=== PATIENT | female | born 1970 | race Caucasian/White ===

== ENCOUNTER 2016-04-20 19:18 | Emergency (ER) | payer OTHER ==
--- NOTE | 2016-04-20 19:40 | ERPHSYRPT ---
- History of Present Illness Time Seen by Provider: 04/20/16 19:27 Source: patient Exam Limitations: no limitations Physician History: FOR THE PAST MONTH PT HAS HAD A PRODUCTIVE COUGH, FRONTAL HEADACHE AND DIAPHORESIS AT NIGHT; FOR YEARS SHE HAS HAD ABDOMINAL PAIN FROM IBS. Allergies/Adverse Reactions: milnacipran HCl [From Savella] Allergy (Severe, Verified 04/20/16 19:55) Tightness of Throat pregabalin [From Lyrica] Allergy (Severe, Verified 04/20/16 19:55) Tightness of Throat Sulfa (Sulfonamide Antibiotics) [Sulfa(Sulfonamide Antibiotics)] Allergy ( Intermediate, Verified 04/20/16 19:55) Hives gabapentin [From Neurontin] Allergy (Mild, Verified 04/20/16 19:55) Swelling topiramate [From Topamax] Allergy (Mild, Verified 04/20/16 19:55) Swelling acetaminophen [From [place]] Allergy (Verified 04/20/16 19:55) hydrocodone [From [place]] Allergy (Verified 04/20/16 19:55) Home Medications: Alprazolam 1 mg [Xanax 1 mg] 2 mg PO QIDPRN PRN 08/18/13 [History] Promethazine HCl 25 mg [Phenergan 25 mg] 25 mg PO Q6HPRN 08/18/13 [History ] Tizanidine HCl [Zanaflex] 6 mg PO Q4HPRN PRN 03/13/14 [History] Albuterol Sulfate [Proair Hfa] 2 puff IH UD 06/07/14 [History] Quetiapine Fumarate [Seroquel] 400 mg PO HS 06/07/14 [History] Ranitidine HCl [Zantac] 300 mg PO DAILY 06/07/14 [History] Albuterol Sulfate [Proair Hfa] 0 gm IH DAILY PRN PRN 07/11/15 [History] Escitalopram Oxalate 10 mg [Lexapro 10 MG] 20 mg PO DAILY 04/20/16 [History] Loperamide HCl [Imodium A-D] 2 mg PO DAILY 04/20/16 [History] Ropinirole HCl 0.5 mg [Requip 0.5 MG] 0.25 mg PO DAILY 04/20/16 [History] Tramadol HCl 50 mg [Ultram 50 mg] 50 mg PO TID 04/20/16 [History] Hx Tetanus, Diphtheria Vaccination/Date Given: Yes Hx Influenza Vaccination/Date Given: No Hx Pneumococcal Vaccination/Date Given: No - Review of Systems Constitutional: Night Sweats Respiratory: Cough Abdominal/Gastrointestinal: Abdominal Pain (CHRONIC) Neurological: Headache All Other Systems: Reviewed and Negative - Past Medical History Pertinent Past Medical History: Yes Neurological History: Migraines ENT History: No Pertinent History Cardiac History: Hypertension Respiratory History: Asthma, Sleep Apnea Endocrine Medical History: No Pertinent History Musculoskeletal History: Arthritis, Degenerative Disk Disease, Fibromyalgia, Fractures, Rheumatoid Arthritis GI Medical History: Colitis, GERD, Gallbladder Disease, Hernia, Irritable Bowel , Other History: No Pertinent History Psycho-Social History: Anxiety, Depression, Panic Disorder, Other Female Reproductive Disorders: Fibroids Other Medical History: inflammation in stomach lining,- fibrous breastsBORDERLINE PERSONALITYasthma/allergy inducedovarian cystsbulging disc back - Past Surgical History Past Surgical History: Yes Neuro Surgical History: No Pertinent History Cardiac: No Pertinent History Respiratory: No Pertinent History Gastrointestinal: Cholecystectomy Genitourinary: No Pertinent History Musculoskeletal: No Pertinent History Female Surgical History: Section, Tubal Ligation Other Surgical History: tonsils 1991 - Social History Smoking Status: Current every day smoker How long have you smoked: 20 Exposure to second hand smoke: Yes Alcohol Use: None Drug Use: none Patient Lives Alone: No Significant Family History: hypertension - Female History Hx Now: No - Nursing Vital Signs Nursing Vital Signs: Initial Vital Signs Temperature 97.9 F Temperature Source Oral Pulse Rate 98 Respiratory Rate 14 Blood Pressure [] 160/90 Pain Intensity 7 - Physical Exam General Appearance: no apparent distress Eye Exam: PERRL/EOMI Ears, Nose, Throat Exam: TMs normal, moist mucous membranes, pharyngeal erythema Neck Exam: normal inspection, non-tender Respiratory Exam: normal breath sounds Cardiovascular Exam: normal heart sounds Gastrointestinal/Abdomen Exam: soft, normal bowel sounds Back Exam: normal range of motion Extremity Exam: normal inspection, No pedal edema Neurologic Exam: alert, cooperative Skin Exam: warm, dry - Course Nursing assessment & vital signs reviewed: Yes - Radiology Exams Chest X-ray Interpretation: Discussed w/ radiologist (COMPARED TO 10/8/16: STABLE NORMAL CXR.) Ordered Tests: Active Orders 24 hr Category Date Time Status CHEST 2 VIEWS (PA AND LAT) Stat Exams 04/20/16 20:06 Taken CULTURE, THROAT Stat Lab 04/20/16 20:05 Received STREP SCREEN-BETA A Stat Lab 04/20/16 20:05 Completed Medication Summary Generic Name Dose Route Start Last Admin Trade Name Freq PRN Reason Stop Dose Admin Ceftriaxone Sodium/Dextrose 50 mls @ 100 mls/hr 04/20/16 21:39 Rocephin 1 Gm-D5w 50 Ml Bag IV 04/20/16 22:08 STAT ONE Discontinued Medications Generic Name Dose Route Start Last Admin Trade Name Freq PRN Reason Stop Dose Admin Tuberculin PPD 5 unit 04/20/16 21:39 Aplisol ID 04/20/16 21:40 STAT ONE Lab/Rad Data: Laboratory Results 04/20/16 Range/Units 20:05 Streptococcus Screen NEGATIVE (Negative) - Departure Time of Disposition: 21:44 Departure Disposition: Home Clinical Impression: PHARYNGITIS Condition: Fair Critical Care Time: No Referrals: DEVON HULL [Primary Care Provider] - Instructions: Pharyngitis/Tonsillopharyngitis -- Adult Additional Instructions: FOLLOW UP WITH PRIVATE DOCTOR TOMORROW AND BETWEEN 48 HOURS TO 72 HOURS FROM 10: 00 PM TONIGHT TO HAVE TB TEST ON LEFT FOREARM READ. Prescriptions: Cefdinir [Omnicef 300 mg] 300 mg PO BID #20 capsule
[2016-04-20] MEDS ORDERED: Aplisol ID ONE ×2 (21:39→21:59)
[2016-04-20] MEDS ORDERED: ROCEPHIN 1 Gm-D5w 50 ml Bag** 50 ML IV ONE (22:23)
[2016-04-20] MEDS: ROCEPHIN 1 Gm-D5w 50 ml Bag** 50 ML IV ONE ×2 (22:27→22:30)
[2016-04-20] MEDS ORDERED: Rocephin 1000 MG INJ IM ONE (22:30)
[2016-04-20] MEDS ORDERED: XYLOCAINE 1% HCL 20 ML MDV ONE (22:48)
[2016-04-20] MEDS ORDERED: Rocephin 1000 MG INJ ONE (22:48)
[2016-04-20 22:57] VITALS: BP 142/91; PULSE 104; O2SAT 97
--- NOTE | 2016-04-21 08:39 | XRAY ---
Indication: Fever, cough, and night sweats. TB exposure 6 months ago. Comparison: November 16, 2015. PA/lateral chest again demonstrates normal heart, lungs, and bony thorax.
== END 2016-04-20 23:12 | disposition home or self-care (01) ==
LOC: ED 19:18
DX: J02.9 Acute pharyngitis, unspecified (principal); R05 Cough; R51 Headache; R61 Generalized hyperhidrosis; Z79.899 Other long term (current) drug therapy; R10.9 Unspecified abdominal pain; I10 Essential (primary) hypertension
CPT/HCPCS: 71020; 87070; 87430; 96372; 99284; J0696

== ENCOUNTER 2016-09-04 17:27 | Emergency (ER) | payer OTHER ==
[2016-09-04] MEDS ORDERED: MORPHINE SULFATE 4 MG INJ IV ONE (18:06)
[2016-09-04] MEDS ORDERED: Zofran 4 MG/2 ML VIAL IV ONE (18:06)
--- NOTE | 2016-09-04 18:07 | ERPHSYRPT ---
- History of Present Illness Time Seen by Provider: 09/04/16 18:02 Source: patient Exam Limitations: no limitations Patient Subjective Stated Complaint: pt states she tripped and missed the last step at her home. pt c/o pain to left shoulder and side. denies any loss of consciousness. Triage Nursing Assessment: pt pink, warm, dry. c-collar apllied upon arrival to ER. pt ambulated into ER without help. no brusing or deformities noted. abrasion noted to right foot and right knee. pupils perrl. Physician History: 46 y/o female comes to the ER after falling from 3 flights of steps and landing on the left side of her shoulder, chest and head. No LOC and the patient is not on any blood thinners. Pt describes the pain as sharp, constant, 8/10, worst with movement and not relieved by norco. Pt arrives with a small contusion on the left side of her head, is in a cervical collar and has decrease range of motion of her left side. Method of Injury: fall Occurred: just prior to arrival Where Injury Occurred: home Loss of Consciousness: no loss of consciousness Pain Location: left, neck, shoulder, chest, rib(s), back Severity of Pain-Max: severe Severity of Pain-Current: severe Modifying Factors: Improves With: movement Associated Symptoms: back pain, neck pain Allergies/Adverse Reactions: milnacipran HCl [From Savella] Allergy (Severe, Verified 09/04/16 17:40) Tightness of Throat pregabalin [From Lyrica] Allergy (Severe, Verified 09/04/16 17:40) Tightness of Throat Sulfa (Sulfonamide Antibiotics) [Sulfa(Sulfonamide Antibiotics)] Allergy ( Intermediate, Verified 09/04/16 17:40) Hives gabapentin [From Neurontin] Allergy (Mild, Verified 09/04/16 17:40) Swelling topiramate [From Topamax] Allergy (Mild, Verified 09/04/16 17:40) Swelling Home Medications: Alprazolam 1 mg [Xanax 1 mg] 2 mg PO QIDPRN PRN 08/18/13 [History] Promethazine HCl 25 mg [Phenergan 25 mg] 25 mg PO Q6HPRN 08/18/13 [History ] Tizanidine HCl [Zanaflex] 6 mg PO Q4HPRN PRN 03/13/14 [History] Albuterol Sulfate [Proair Hfa] 2 puff IH UD 06/07/14 [History] Quetiapine Fumarate [Seroquel] 400 mg PO HS 06/07/14 [History] Ranitidine HCl [Zantac] 300 mg PO DAILY 06/07/14 [History] Albuterol Sulfate [Proair Hfa] 0 gm IH DAILY PRN PRN 07/11/15 [History] Escitalopram Oxalate 10 mg [Lexapro 10 MG] 20 mg PO DAILY 04/20/16 [History] Loperamide HCl [Imodium A-D] 2 mg PO DAILY 04/20/16 [History] Ropinirole HCl 0.5 mg [Requip 0.5 MG] 0.25 mg PO DAILY 04/20/16 [History] Hx Tetanus, Diphtheria Vaccination/Date Given: Yes (up to date) Hx Influenza Vaccination/Date Given: No Hx Pneumococcal Vaccination/Date Given: No Immunizations Up to Date: Yes - Review of Systems Constitutional: No Fever, No Chills Eyes: No Symptoms Ears, Nose, & Throat: No Symptoms Respiratory: No Cough, No Dyspnea Cardiac: Chest Pain, No Edema, No Syncope Abdominal/Gastrointestinal: No Abdominal Pain, No Nausea, No Vomiting, No Diarrhea Genitourinary Symptoms: No Dysuria Musculoskeletal: Back Pain, Neck Pain, Fall, Injury, Myalgias Skin: No Rash Neurological: No Dizziness, No Focal Weakness, No Sensory Changes Psychological: No Symptoms Endocrine: No Symptoms All Other Systems: Reviewed and Negative - Past Medical History Pertinent Past Medical History: Yes Neurological History: Migraines ENT History: No Pertinent History Cardiac History: Hypertension Respiratory History: Asthma, Sleep Apnea Endocrine Medical History: No Pertinent History Musculoskeletal History: Arthritis, Degenerative Disk Disease, Fibromyalgia, Fractures, Rheumatoid Arthritis GI Medical History: Colitis, GERD, Gallbladder Disease, Hernia, Irritable Bowel , Other History: No Pertinent History Psycho-Social History: Anxiety, Depression, Panic Disorder, Other Female Reproductive Disorders: Fibroids Other Medical History: inflammation in stomach lining,- fibrous breastsBORDERLINE PERSONALITYasthma/allergy inducedovarian cystsbulging disc back - Past Surgical History Past Surgical History: Yes Neuro Surgical History: No Pertinent History Cardiac: No Pertinent History Respiratory: No Pertinent History Gastrointestinal: Cholecystectomy Genitourinary: No Pertinent History Musculoskeletal: No Pertinent History Female Surgical History: Section, Tubal Ligation Other Surgical History: tonsils 1992. vertiplasty t-8 - Social History Smoking Status: Current every day smoker How long have you smoked: 25 Exposure to second hand smoke: Yes Alcohol Use: None Drug Use: none Patient Lives Alone: No Significant Family History: hypertension - Female History Hx Last Menstrual Period: august 22 2016 Hx Now: No Physical Exam - Nursing Vital Signs Nursing Vital Signs: Initial Vital Signs Temperature 97.8 F 09/04/16 17:30 Pulse Rate 90 09/04/16 17:30 Respiratory Rate 18 09/04/16 17:30 Blood Pressure 112/58 09/04/16 17:30 O2 Sat by Pulse Oximetry 97 09/04/16 17:30 Pain Scale Pain Intensity 8 - Burns Coma Score Best Eye Response (Alicia): (4) open spontaneously Best Verbal Response (Burns): (5) oriented Best Motor Response (Alicia): (6) obeys commands Burns Total: 15 - Physical Exam General Appearance: moderate distress Head Injury: contusions Eye Exam: bilateral eye: normal inspection, PERRL, EOMI ENT Exam: airway nml, nml ext.inspection Neck Exam: mid-line tenderness Respiratory/Chest Exam: chest tenderness, normal breath sounds Cardiovascular Exam: normal heart sounds, regular rate/rhythm Gastrointestinal Exam: soft, normal bowel sounds Back Exam: decreased range of motion, muscle spasm, point tenderness Extremity Exam: limited range of motion, pain with movement Neurologic Exam: alert, oriented x 3, cooperative Skin Exam: normal color SpO2 Interpretation: normal SpO2: 97 Oxygen Delivery: Room Air Ordered Tests: Active Orders 24 hr Category Date Time Status Sling Application STAT Care 09/04/16 20:11 Ordered CERVICAL SPINE WO CONTRAST [CT] Stat Exams 09/04/16 18:07 Taken CHEST 2 VIEWS (PA AND LAT) Stat Exams 09/04/16 18:08 Taken HEAD WITHOUT CONTRAST [CT] Stat Exams 09/04/16 18:07 Taken LUMBAR SPINE W/O [CT] Stat Exams 09/04/16 18:07 Taken SHOULDER Stat Exams 09/04/16 18:08 Taken THORACIC SPINE W/O CONTRAST [CT] Stat Exams 09/04/16 18:07 Taken Medication Summary Discontinued Medications Generic Name Dose Route Start Last Admin Trade Name Yan PRN Reason Stop Dose Admin Morphine Sulfate 4 mg 09/04/16 18:06 09/04/16 18:21 Morphine Sulfate 4 Mg Inj IV 09/04/16 18:07 Not Given STAT ONE Morphine Sulfate 4 mg 09/04/16 18:12 09/04/16 18:16 Morphine Sulfate 4 Mg Inj IM 09/04/16 18:13 4 mg STAT ONE Administration Morphine Sulfate Confirm 09/04/16 18:15 Morphine Sulfate 4 Mg Inj Administered 09/04/16 18:16 Dose 4 mg .ROUTE .STK-MED ONE Ondansetron HCl 4 mg 09/04/16 18:06 09/04/16 18:22 Zofran 4 Mg/2 Ml Vial IV 09/04/16 18:07 Not Given STAT ONE Ondansetron HCl 4 mg 09/04/16 18:11 09/04/16 18:16 Zofran Odt 4 Mg PO 09/04/16 18:12 4 mg STAT ONE Administration Ondansetron HCl Confirm 09/04/16 18:15 Zofran Odt 4 Mg Administered 09/04/16 18:16 Dose 4 mg .ROUTE .STK-MED ONE - Progress Progress: pain not gone completely Progress Note: 09/04/16 20:[address] head, cervical spine, thoracic spine and lumbar spine are all within normal limits. The CXR and shoulder x ray are within normal limits. Pt will be giving a dose of toradol prior to discharge. - Departure Time of Disposition: 20:13 Departure Disposition: Home Clinical Impression: Fall Qualifiers: Encounter type: initial encounter Qualified Code(s): W19.XXXA - Unspecified fall, initial encounter Shoulder pain Qualifiers: Chronicity: acute Laterality: bilateral Qualified Code(s): M25.511 - Pain in right shoulder; M25.512 - Pain in left shoulder Headache Qualifiers: Headache type: other headache syndrome Qualified Code(s): G44.89 - Other headache syndrome Condition: Stable Critical Care Time: No Referrals: DEVON HULL [Primary Care Provider] - Instructions: Prevent Falls, Muscle Strain Additional Instructions: Follow up with your primary care doctor for any additional pain management issues. Prescriptions: Ketorolac Tromethamine [Toradol] 10 mg PO QID PRN #20 tablet PRN Reason: Pain
[2016-09-04] MEDS ORDERED: ZOFRAN ODT 4 MG PO ONE (18:11)
[2016-09-04] MEDS ORDERED: MORPHINE SULFATE 4 MG INJ IM ONE (18:12)
[2016-09-04] MEDS ORDERED: ZOFRAN ODT 4 MG ONE (18:15)
[2016-09-04] MEDS ORDERED: MORPHINE SULFATE 4 MG INJ ONE (18:15)
[2016-09-04] MEDS ORDERED: TORAdol 30 mg Injection IM ONE (20:11)
[2016-09-04] MEDS ORDERED: TORAdol 30 mg Injection ONE (20:13)
[2016-09-04 20:27] VITALS: BP 114/60; PULSE 78; O2SAT 100
--- NOTE | 2016-09-05 08:14 | XRAY ---
Indication: Pain following fall down steps. Multiple contiguous axial images obtained through the head without contrast. Comparison: February 10, 2013. Again normal appearing brain parenchyma, ventricles, and bony calvarium. Visualized paranasal sinuses and mastoid air cells are clear. Impression: Stable normal CT head without contrast exam. Comment: Preliminary interpretation was made by [facility]. No discrepancy. CTDI 70.91
--- NOTE | 2016-09-05 08:16 | XRAY ---
Indication: Pain following fall down steps. Multiple contiguous axial images obtained through the cervical spine. Sagittal and coronal reformatted images obtained. Comparison: None. There is a cervical radiograph dated July 11, 2015. Axial images negative for acute fracture, suspicious bony lesions, or spinal canal stenosis. Sagittal and coronal reformatted images demonstrate slight straightening of the cervical lordosis, positional versus paraspinal spasm. Disc spaces maintained. No acute compression fracture, subluxation, or jumped facet. Normal-appearing craniocervical junction. Visualized noncontrasted soft tissues unremarkable. CT head and CT thoracic spine reported separately. Impression: Negative CT cervical spine. Comment: Preliminary interpretation was made by [facility]. No discrepancy. CTDI 128.56
--- NOTE | 2016-09-05 08:21 | XRAY ---
Indication: Pain following fall down steps. T8 vertebroplasty. Multiple contiguous axial images obtained through the thoracic spine. Sagittal and coronal reformatted images obtained. Comparison: None. There is a thoracic radiograph dated March 17, 2016. Axial images negative for acute fracture, suspicious bony lesions, or spinal canal stenosis. Minimal multilevel degenerative endplate spurring and previous T8 vertebroplasty. Sagittal and coronal reformatted images demonstrate slight normal alignment. Disc spaces maintained. No acute compression fracture or subluxation. Visualized noncontrasted soft tissues demonstrates calcified granulomas and cholecystectomy clips. CT cervical and CT lumbar spine reported separately. Impression: Minimal degenerative changes and previous T8 vertebroplasty. Negative acute fracture. Comment: Preliminary interpretation was made by [facility]. No discrepancy. CTDI 122.57
--- NOTE | 2016-09-05 08:25 | XRAY ---
Indication: Pain following fall down steps. Multiple contiguous axial images obtained through the lumbar spine. Sagittal and coronal reformatted images obtained. Comparison: March 15, 2014. Axial images again negative for acute fracture, suspicious bony lesions, or spinal canal stenosis. Stable mild L5-S1 degenerative disc osteophyte complex with now minimal degenerative vacuum disc phenomena. Sagittal and coronal reformatted images demonstrate normal alignment. Stable L5-S1 disc space narrowing. Remaining disc spaces maintained. No acute compression fracture or subluxation. Visualized noncontrasted soft tissues demonstrates minimal vascular calcifications. CT thoracic spine reported separately. Impression: Again L5-S1 degenerative disc disease. Negative for acute fracture/subluxation. Comment: Preliminary interpretation was made by [facility]. No discrepancy. CTDI 120.35
--- NOTE | 2016-09-05 08:27 | XRAY ---
Indication: Pain following fall down steps. Comparison: None 3 views of the left shoulder obtained. No bony, articular, or soft tissue abnormalities.
--- NOTE | 2016-09-05 08:29 | XRAY ---
Indication: Pain following fall down steps. Comparison: April 20, 2016. AP/lateral chest demonstrates interval T8 vertebroplasty with now high density in multiple pulmonary vessels presumed cement embolization from vertebroplasty. Remaining heart and lungs normal. Bony thorax intact.
== END 2016-09-04 20:28 | disposition home or self-care (01) ==
LOC: ED 17:27
DX: M25.511 Pain in right shoulder (principal); M25.512 Pain in left shoulder; G44.89 Other headache syndrome; W10.9XXA Fall (on) (from) unspecified stairs and steps, initial encounter; S90.811A Abrasion, right foot, initial encounter; S80.211A Abrasion, right knee, initial encounter; Z79.899 Other long term (current) drug therapy
CPT/HCPCS: 70450; 71020; 72125; 72128; 72131; 73030; 96372; 99284; J1885; J2270; Q0162

== ENCOUNTER 2017-05-04 10:45 | Emergency (ER) | payer MEDICARE ==
[2017-05-04] MEDS ORDERED: Zovirax INJ*** 500 MG in D5w 100ML Mini Bag 100 ML 100 ML IV ONE (12:05)
[2017-05-04] MEDS ORDERED: Zofran 4 MG/2 ML VIAL IV ONE (12:07)
[2017-05-04] MEDS ORDERED: Hydromorphone 1 mg/ml Ampule IV ONE (12:07)
--- NOTE | 2017-05-04 12:15 | ERPHSYRPT ---
- History of Present Illness Time Seen by Provider: 05/04/17 12:00 Source: patient Exam Limitations: no limitations Patient Subjective Stated Complaint: pt reports shingles for 2 weeks. states she now has them in her ear and is in severe pain. states she had an appt today with financial compliance manager R/T this problem but could not wait. also reports dizziness. Triage Nursing Assessment: pt is aox3. pupils perrl. resps easy and non labored. pt is afebrile. skin is pink warm and dry. lesions noted to the right eye, right face. redness noted to the external r ear. Physician History: 46 y/o female with history of shingles comes to the ER with complaints of right eyelid lesion that started 2 weeks ago and 3 days later she had lesions around the right ear. Pt describes the pain as burning, constant, 10/10 and pt has not taken any pain meds. Pt states that she has no blurry vision, double vision or other vision changes. Pt does admit to having tinnitus, decrease hearing of the right ear and balance issues. Timing/Duration: gradual onset Severity: severe ENT Location: ear (R) Prearrival Treatment: no prearrival treatment Modifying Factors: Improves With: nothing Associated Symptoms: ear pain (R), facial pain/swelling Allergies/Adverse Reactions: milnacipran HCl [From Savella] Allergy (Severe, Verified 05/04/17 11:54) Tightness of Throat pregabalin [From Lyrica] Allergy (Severe, Verified 05/04/17 11:54) Tightness of Throat Sulfa (Sulfonamide Antibiotics) [Sulfa(Sulfonamide Antibiotics)] Allergy ( Intermediate, Verified 05/04/17 11:54) Hives gabapentin [From Neurontin] Allergy (Mild, Verified 05/04/17 11:54) Swelling topiramate [From Topamax] Allergy (Mild, Verified 05/04/17 11:54) Swelling Home Medications: Alprazolam 1 mg [Xanax 1 mg] 2 mg PO QIDPRN PRN 08/18/13 [History] Promethazine HCl 25 mg [Phenergan 25 mg] 25 mg PO Q6HPRN 08/18/13 [History ] Tizanidine HCl [Zanaflex] 6 mg PO Q4HPRN PRN 03/13/14 [History] Albuterol Sulfate [Proair Hfa] 2 puff IH UD 06/07/14 [History] Quetiapine Fumarate [Seroquel] 400 mg PO HS 06/07/14 [History] Ranitidine HCl [Zantac] 300 mg PO DAILY 06/07/14 [History] Albuterol Sulfate [Proair Hfa] 0 gm IH DAILY PRN PRN 07/11/15 [History] Escitalopram Oxalate 10 mg [Lexapro 10 MG] 20 mg PO DAILY 04/20/16 [History] Loperamide HCl [Imodium A-D] 2 mg PO DAILY 04/20/16 [History] Ropinirole HCl 0.5 mg [Requip 0.5 MG] 0.25 mg PO DAILY 04/20/16 [History] Hx Tetanus, Diphtheria Vaccination/Date Given: Yes Hx Influenza Vaccination/Date Given: No Hx Pneumococcal Vaccination/Date Given: No Immunizations Up to Date: Yes - Review of Systems Constitutional: No Fever, No Chills Eyes: Eye Pain Ears, Nose, & Throat: Ear Pain, Tinnitus, Mouth Pain Respiratory: No Cough, No Dyspnea Cardiac: No Chest Pain, No Edema, No Syncope Abdominal/Gastrointestinal: No Abdominal Pain, No Nausea, No Vomiting, No Diarrhea Genitourinary Symptoms: No Dysuria Musculoskeletal: No Back Pain, No Neck Pain Skin: No Rash Neurological: No Dizziness, No Focal Weakness, No Sensory Changes Psychological: No Symptoms Endocrine: No Symptoms All Other Systems: Reviewed and Negative - Past Medical History Pertinent Past Medical History: Yes Neurological History: Migraines ENT History: No Pertinent History Cardiac History: Hypertension Respiratory History: Asthma, Sleep Apnea Endocrine Medical History: No Pertinent History Musculoskeletal History: Arthritis, Degenerative Disk Disease, Fibromyalgia, Fractures, Rheumatoid Arthritis GI Medical History: Colitis, GERD, Gallbladder Disease, Hernia, Irritable Bowel , Other History: No Pertinent History Psycho-Social History: Anxiety, Depression, Panic Disorder, Other Female Reproductive Disorders: Fibroids Other Medical History: inflammation in stomach lining,- fibrous breastsBORDERLINE PERSONALITYasthma/allergy inducedovarian cystsbulging disc back - Past Surgical History Past Surgical History: Yes Neuro Surgical History: No Pertinent History Cardiac: No Pertinent History Respiratory: No Pertinent History Gastrointestinal: Cholecystectomy Genitourinary: No Pertinent History Musculoskeletal: No Pertinent History Female Surgical History: Section, Tubal Ligation Other Surgical History: tonsils 1992. vertiplasty t-8 - Social History Smoking Status: Current every day smoker How long have you smoked: 25 Exposure to second hand smoke: Yes Alcohol Use: None Drug Use: none Patient Lives Alone: No Significant Family History: hypertension - Female History Hx Last Menstrual Period: 05/02/17 Hx Now: No - Nursing Vital Signs Nursing Vital Signs: Initial Vital Signs Temperature 98.4 F 05/04/17 11:46 Pulse Rate 89 05/04/17 11:46 Respiratory Rate 20 05/04/17 11:46 Blood Pressure 148/87 05/04/17 11:46 O2 Sat by Pulse Oximetry 97 05/04/17 11:46 Pain Scale Pain Intensity 6 - Physical Exam General Appearance: moderate distress, alert Eye Exam: right eye: other (right eyelid lesion), bilateral eye: PERRL, EOMI Ear Exam: right ear: other (right outer ear lesions) Nasal Exam: normal inspection Throat Exam: pharynx normal, moist mucus membranes, No tonsillar exudate Neck Exam: normal inspection, non-tender, supple Cardiovascular/Respiratory Exam: normal breath sounds, regular rate/rhythm Abdominal Exam: non-tender, soft Neurologic Exam: alert, oriented x 3, sensation nml, No motor deficits Skin Exam: normal color, warm, dry SpO2: 97 Oxygen Delivery: Room Air - Course Nursing assessment & vital signs reviewed: Yes Ordered Tests: Medication Summary Discontinued Medications Generic Name Dose Route Start Last Admin Trade Name Freq PRN Reason Stop Dose Admin Erythromycin 3.5 gm 05/04/17 13:53 Erythromycin 3.5 Gm Ophth. OP 05/04/17 13:54 STAT ONE Hydromorphone HCl 1 mg 05/04/17 12:07 05/04/17 12:28 Hydromorphone 1 Mg/Ml Ampule IV 05/04/17 12:08 1 mg STAT ONE Administration Hydromorphone HCl Confirm 05/04/17 12:23 Dilaudid 2 Mg Injection Administered 05/04/17 12:24 Dose 2 mg .ROUTE .STK-MED ONE Acyclovir Sodium 500 mg/ 100 mls @ 100 mls/hr 05/04/17 12:05 05/04/17 12:44 Dextrose IV 05/04/17 13:04 100 mls/hr STAT ONE Administration Ondansetron HCl 4 mg 05/04/17 12:07 05/04/17 12:26 Zofran 4 Mg/2 Ml Vial IV 05/04/17 12:08 4 mg STAT ONE Administration Ondansetron HCl Confirm 05/04/17 12:22 Zofran 4 Mg/2 Ml Vial Administered 05/04/17 12:23 Dose 4 mg .ROUTE .STK-MED ONE - Progress Progress: improved Progress Note: 05/04/17 13:56 Pt feels better after receiving dilaudid, zofran and acyclovir. I spoke to the opthalmologist at and he recommended to start the patient on erythromycin ointment and valtrex. - Departure Time of Disposition: 13:57 Departure Disposition: Home Clinical Impression: Shingles Qualifiers: Herpes zoster complications: without complications Qualified Code(s): B02.9 - Zoster without complications Condition: Stable Critical Care Time: No Referrals: DEVON HULL [Primary Care Provider] - JESICA KIMBLE [NON-STAFF PHY W/O PRIVILEGES] - Instructions: Shingles (DC) Additional Instructions: Follow up with Dr Kimble in the next few days for shingles of the eye. Return to the ER if you should have worsening ear pain, eye pain, or vision changes. Prescriptions: Erythromycin Base 3.5 gm [Erythromycin 3.5 GM OPHTH.] 3.5 gm OP BID #1 tube Oxycodone HCl/Acetaminophen [Percocet 5-325 mg Tablet] 1 each PO QID PRN #15 tablet MDD 4 PRN Reason: Pain Valacyclovir HCl [Valtrex] 1,000 mg PO TID #30 tablet
[2017-05-04] MEDS ORDERED: Zofran 4 MG/2 ML VIAL ONE (12:22)
[2017-05-04] MEDS ORDERED: DILAUDID 2 MG INJECTION ONE (12:23)
[2017-05-04] MEDS ORDERED: Erythromycin 3.5 GM OPHTH. OP ONE (13:53)
[2017-05-04] MEDS ORDERED: Erythromycin 1 GM ONE (14:09)
[2017-05-04 14:19] VITALS: BP 135/81; PULSE 73; O2SAT 96
== END 2017-05-04 14:18 | disposition home or self-care (01) ==
LOC: ED 10:45
DX: B02.9 Zoster without complications (principal)
CPT/HCPCS: 36000; 96365; 96374; 96375; 99284; J0133; J1170; J2405; A9270-GY

== ENCOUNTER 2017-06-23 21:30 | Emergency (ER) | payer MEDICARE ==
[2017-06-23 21:46] VITALS: PULSE 90; O2SAT 99
--- NOTE | 2017-06-23 22:02 | ERPHSYRPT ---
- History of Present Illness Time Seen by Provider: 06/23/17 21:50 Historian: patient Exam Limitations: no limitations Patient Subjective Stated Complaint: Pt arrives to ER with lower abdominal pain that began approx 1930 prior to having BM which pt states made pain worse. Denies diarrhea or constipation. States has some nausea without vomiting. Pain came on all of a sudden. States has vaginal bleeding intermittently for past couple weeks but is currently not bleeding at this time. Denies pain on one side more than other. Denies dysuria, hematuria, vaginal discharge, fever or any other sx. Triage Nursing Assessment: see above Physician History: 47 y/o female comes to the ER with complaints of lower abdominal pain that started 2 hours prior to arrival. Pt mentions the pain feels as if she is having another ovarian cyst rupture. Pt describes the pain as sharp, constant, 9 /10 and the patient has not taken any pain meds. Pt also admits to having nausea , but no vomiting. Pt also denies any fever, chills, constipation, diarrhea, bloody stools or urinary symptoms. Timing/Duration: today Activities at Onset: none Quality: sharpness Abdominal Pain Onset Location: periumbilical, suprapubic Pain Radiation: no radiation Severity of Pain-Max: severe Severity of Pain-Current: severe Modifying Factors: Improves With: nothing Associated Symptoms: nausea Previous symptoms: same symptoms as today Allergies/Adverse Reactions: milnacipran HCl [From Savella] Allergy (Severe, Verified 06/23/17 21:47) Tightness of Throat pregabalin [From Lyrica] Allergy (Severe, Verified 06/23/17 21:47) Tightness of Throat Sulfa (Sulfonamide Antibiotics) [Sulfa(Sulfonamide Antibiotics)] Allergy ( Intermediate, Verified 06/23/17 21:47) Hives gabapentin [From Neurontin] Allergy (Mild, Verified 06/23/17 21:47) Swelling topiramate [From Topamax] Allergy (Mild, Verified 06/23/17 21:47) Swelling Home Medications: Alprazolam 1 mg [Xanax 1 mg] 2 mg PO QIDPRN PRN 08/18/13 [History] Promethazine HCl 25 mg [Phenergan 25 mg] 25 mg PO Q6HPRN 08/18/13 [History ] Tizanidine HCl [Zanaflex] 6 mg PO Q4HPRN PRN 03/13/14 [History] Albuterol Sulfate [Proair Hfa] 2 puff IH UD 06/07/14 [History] Ranitidine HCl [Zantac] 300 mg PO DAILY 06/07/14 [History] Escitalopram Oxalate 10 mg [Lexapro 10 MG] 20 mg PO DAILY 04/20/16 [History] Loperamide HCl [Imodium A-D] 2 mg PO DAILY 04/20/16 [History] Ropinirole HCl 0.5 mg [Requip 0.5 MG] 0.25 mg PO DAILY 04/20/16 [History] Hydroxyzine HCl 25 mg [Atarax 25 mg] 25 mg PO DAILY 06/23/17 [History] Hx Tetanus, Diphtheria Vaccination/Date Given: Yes Hx Influenza Vaccination/Date Given: No Hx Pneumococcal Vaccination/Date Given: No - Review of Systems Constitutional: No Fever, No Chills Eyes: No Symptoms Ears, Nose, & Throat: No Symptoms Respiratory: No Cough, No Dyspnea Cardiac: No Chest Pain, No Edema, No Syncope Abdominal/Gastrointestinal: Abdominal Pain, Nausea, No Vomiting, No Diarrhea Genitourinary Symptoms: No Dysuria Musculoskeletal: No Back Pain, No Neck Pain Skin: No Rash Neurological: No Dizziness, No Focal Weakness, No Sensory Changes Psychological: No Symptoms Endocrine: No Symptoms All Other Systems: Reviewed and Negative - Past Medical History Pertinent Past Medical History: Yes Neurological History: Migraines ENT History: No Pertinent History Cardiac History: Hypertension Respiratory History: Asthma, Sleep Apnea Endocrine Medical History: No Pertinent History Musculoskeletal History: Arthritis, Degenerative Disk Disease, Fibromyalgia, Fractures, Rheumatoid Arthritis GI Medical History: Colitis, GERD, Gallbladder Disease, Hernia, Irritable Bowel , Other History: No Pertinent History Psycho-Social History: Anxiety, Depression, Panic Disorder, Other Female Reproductive Disorders: Fibroids Other Medical History: inflammation in stomach lining,- fibrous breastsBORDERLINE PERSONALITYasthma/allergy inducedovarian cystsbulging disc back - Past Surgical History Past Surgical History: Yes Neuro Surgical History: No Pertinent History Cardiac: No Pertinent History Respiratory: No Pertinent History Gastrointestinal: Cholecystectomy Genitourinary: No Pertinent History Musculoskeletal: No Pertinent History Female Surgical History: Section, Tubal Ligation Other Surgical History: tonsils 1992. vertiplasty t-8 - Social History Smoking Status: Current every day smoker How long have you smoked: 25 Exposure to second hand smoke: Yes Alcohol Use: None Drug Use: none Patient Lives Alone: No Significant Family History: hypertension - Female History Hx Now: No - Nursing Vital Signs Nursing Vital Signs: Initial Vital Signs Temperature 98.4 F 06/23/17 21:34 Pulse Rate 90 06/23/17 21:34 Respiratory Rate 18 06/23/17 21:34 Blood Pressure 132/81 06/23/17 21:34 O2 Sat by Pulse Oximetry 99 06/23/17 21:34 Pain Scale Pain Intensity 9 - Physical Exam General Appearance: mild distress, alert Eye Exam: PERRL/EOMI, eyes nml inspection Ears, Nose, Throat Exam: normal ENT inspection, pharynx normal, moist mucous membranes Neck Exam: normal inspection, non-tender, supple, full range of motion Respiratory Exam: normal breath sounds, lungs clear, No respiratory distress Cardiovascular Exam: regular rate/rhythm, normal heart sounds Gastrointestinal/Abdomen Exam: soft, normal bowel sounds, tenderness, No distention, No mass, No guarding Back Exam: normal inspection, normal range of motion, No CVA tenderness, No vertebral tenderness Extremity Exam: normal inspection, normal range of motion, pelvis stable Neurologic Exam: alert, oriented x 3, cooperative, normal mood/affect, nml cerebellar function, sensation nml, No motor deficits Skin Exam: normal color, warm, dry SpO2: 99 Oxygen Delivery: Room Air - Course Nursing assessment & vital signs reviewed: Yes Ordered Tests: Active Orders 24 hr Category Date Time Status IV Insertion STAT Care 06/23/17 21:57 Active NPO (ED) STAT Care 06/23/17 21:57 Active ABDOMEN AND PELVIS W CONTRAST [CT] Stat Exams 06/23/17 21:58 Taken AMYLASE Stat Lab 06/23/17 22:00 Completed CBC W DIFF Stat Lab 06/23/17 22:00 Completed CMP Stat Lab 06/23/17 22:00 Completed HCG QUALITATIVE,SERUM Stat Lab 06/23/17 22:00 Completed LIPASE Stat Lab 06/23/17 22:00 Completed UA W/RFX UR CULTURE Stat Lab 06/23/17 22:08 Completed Medication Summary Discontinued Medications Generic Name Dose Route Start Last Admin Trade Name Freq PRN Reason Stop Dose Admin Ketorolac Tromethamine 30 mg 06/23/17 21:57 06/23/17 22:07 Toradol 30 Mg Injection IV 06/23/17 21:58 30 mg STAT ONE Administration Ketorolac Tromethamine Confirm 06/23/17 22:04 Toradol 30 Mg Injection Administered 06/23/17 22:05 Dose 30 mg .ROUTE .STK-MED ONE Morphine Sulfate 4 mg 06/23/17 22:53 06/23/17 22:56 Morphine Sulfate 4 Mg Inj IV 06/23/17 22:54 4 mg STAT ONE Administration Morphine Sulfate Confirm 06/23/17 22:55 Morphine Sulfate 4 Mg Inj Administered 06/23/17 22:56 Dose 4 mg .ROUTE .STK-MED ONE Ondansetron HCl 4 mg 06/23/17 21:57 06/23/17 22:07 Zofran 4 Mg/2 Ml Vial IV 06/23/17 21:58 4 mg STAT ONE Administration Ondansetron HCl Confirm 06/23/17 22:04 Zofran 4 Mg/2 Ml Vial Administered 06/23/17 22:05 Dose 4 mg .ROUTE .STK-MED ONE Ondansetron HCl 4 mg 06/24/17 00:17 06/24/17 00:21 Zofran 4 Mg/2 Ml Vial IV 06/24/17 00:18 4 mg STAT ONE Administration Ondansetron HCl Confirm 06/24/17 00:19 Zofran 4 Mg/2 Ml Vial Administered 06/24/17 00:20 Dose 4 mg .ROUTE .STK-MED ONE Lab/Rad Data: Laboratory Result Diagrams 06/23/17 22:00 06/23/17 22:00 Laboratory Results 06/23/17 06/23/17 06/23/17 Range/Units 22:08 22:00 22:00 WBC (4.0-10.5) K/mm3 RBC (4.1-5.4) M/mm3 Hgb (12.0-16.0) gm/dl Hct (35-47) % MCV (78-100) fl MCH (26-32) pg MCHC (32-36) g/dl RDW (11.5-14.0) % Plt Count (150-450) K/mm3 MPV (6-9.5) fl Gran % (36.0-66.0) % Eos # (Auto) (0-0.5) Absolute Lymphs (auto) (1.0-4.6) Absolute Monos (auto) (0.0-1.3) Lymphocytes % (24.0-44.0) % Monocytes % (0.0-12.0) % Eosinophils % (0.00-5.0) % Basophils % (0.0-0.4) % Absolute Granulocytes (1.4-6.9) Basophils # (0-0.4) Sodium 138 (137-145) mmol/L Potassium 3.9 (3.5-5.1) mmol/L Chloride 104 (98-107) mmol/L Carbon Dioxide 22 (22-30) mmol/L Anion Gap 15.0 (5-15) MEQ/L BUN 10 (7-17) mg/dL Creatinine 0.66 (0.52-1.04) mg/dL Estimated GFR > 60.0 ML/MIN Glucose 126 H (74-106) mg/dL Calcium 9.1 (8.4-10.2) mg/dL Total Bilirubin 0.10 L (0.2-1.3) mg/dL AST 21 (14-36) U/L ALT 18 (0-35) U/L Alkaline Phosphatase 94 (38-126) U/L Serum Total Protein 7.0 (6.3-8.2) g/dL Albumin 3.7 (3.5-5.0) g/dL Amylase 50 (30-110) U/L Lipase 42 (23-300) U/L Serum , Qual NEGATIVE (Negative) Ur Collection Type CLEAN CATCH Urine Color LT.YELLOW (YELLOW) Urine Appearance CLEAR (CLEAR) Urine pH 6.0 (5-6) Ur Specific [place] 1.010 (1.005-1.025) Urine Protein NEGATIVE (Negative) Urine Ketones NEGATIVE (NEGATIVE) Urine Blood NEGATIVE (0-5) [place]/ul Urine Nitrite NEGATIVE (NEGATIVE) Urine Bilirubin NEGATIVE (NEGATIVE) Urine Urobilinogen NORMAL (0-1) mg/dL Ur Leukocyte Esterase NEGATIVE (NEGATIVE) Urine Culture Reflexed NO (NO) Urine Glucose NEGATIVE (NEGATIVE) mg/dL Slides for Path Review Specimen Received 06/23/178 06/23/17 Range/Units 22:00 WBC 16.7 H (4.0-10.5) K/mm3 RBC 4.31 (4.1-5.4) M/mm3 Hgb 13.0 (12.0-16.0) gm/dl Hct 39.7 (35-47) % MCV 92.1 (78-100) fl MCH 30.2 (26-32) pg MCHC 32.7 (32-36) g/dl RDW 13.3 (11.5-14.0) % Plt Count 400 (150-450) K/mm3 MPV 9.4 (6-9.5) fl Gran % 57.7 (36.0-66.0) % Eos # (Auto) 0.29 (0-0.5) Absolute Lymphs (auto) 5.76 H (1.0-4.6) Absolute Monos (auto) 0.97 (0.0-1.3) Lymphocytes % 34.5 (24.0-44.0) % Monocytes % 5.8 (0.0-12.0) % Eosinophils % 1.7 (0.00-5.0) % Basophils % 0.3 (0.0-0.4) % Absolute Granulocytes 9.61 H (1.4-6.9) Basophils # 0.05 (0-0.4) Sodium (137-145) mmol/L Potassium (3.5-5.1) mmol/L Chloride (98-107) mmol/L Carbon Dioxide (22-30) mmol/L Anion Gap (5-15) MEQ/L BUN (7-17) mg/dL Creatinine (0.52-1.04) mg/dL Estimated GFR ML/MIN Glucose (74-106) mg/dL Calcium (8.4-10.2) mg/dL Total Bilirubin (0.2-1.3) mg/dL AST (14-36) U/L ALT (0-35) U/L Alkaline Phosphatase (38-126) U/L Serum Total Protein (6.3-8.2) g/dL Albumin (3.5-5.0) g/dL Amylase (30-110) U/L Lipase (23-300) U/L Serum , Qual (Negative) Ur Collection Type Urine Color (YELLOW) Urine Appearance (CLEAR) Urine pH (5-6) Ur Specific [place] (1.005-1.025) Urine Protein (Negative) Urine Ketones (NEGATIVE) Urine Blood (0-5) [place]/ul Urine Nitrite (NEGATIVE) Urine Bilirubin (NEGATIVE) Urine Urobilinogen (0-1) mg/dL Ur Leukocyte Esterase (NEGATIVE) Urine Culture Reflexed (NO) Urine Glucose (NEGATIVE) mg/dL Slides for Path Review YES Specimen Received - Progress Progress: unchanged Progress Note: 06/24/17 00:34 Pt is still saying that she has severe lower abdominal pain and has received toradol, morphine and will receive a dose of dilaudid prior to being discharged home. The CT scan abd/pelvis shows a 30 mm right adnexal cyst. Patient has a white count of 16,000 but the rest of the labs are unremarkable. Pt will F/U with [facility] for an outpatient pelvis US. - Departure Time of Disposition: 00:36 Departure Disposition: Home Clinical Impression: Adnexal cyst Condition: Stable Critical Care Time: No Referrals: DEVON HULL [Primary Care Provider] - Instructions: Ovarian Cyst (DC) Additional Instructions: Follow up with your [facility] doctor for a pelvic ultrasound. Prescriptions: Ketorolac Tromethamine [Toradol] 10 mg PO QID PRN #20 tablet PRN Reason: Pain
[2017-06-23] MEDS ORDERED: TORAdol 30 mg Injection ONE (22:04)
[2017-06-23] MEDS ORDERED: Zofran 4 MG/2 ML VIAL ONE (22:04)
[2017-06-23] MEDS: Zofran 4 MG/2 ML VIAL IV ONE (22:07)
[2017-06-23] MEDS: TORAdol 30 mg Injection IV ONE (22:07)
[2017-06-23 22:11] LABS: BASOPHIL % 0.3 % (0.0-0.4); Basophil (Absolute #) 0.05 (0-0.4); Eosinophil % 1.7 % (0.00-5.0); Eosinophil (Absolute #) 0.29 (0-0.5); Granulocyte Absolute (ANC) 9.61 (1.4-6.9); Granulocytes % 57.7 % (36.0-66.0); Hematocrit 39.7 % (35-47); Lymphocyte (Absolute #) 5.76 (1.0-4.6); Lymphocytes % 34.5 % (24.0-44.0); Mean Cell Volume 92.1 fl (78-100); Mean Corpuscular Hemoglobin 30.2 pg (26-32); Mean Corpuscular Hgb Concent. 32.7 g/dl (32-36); Mean Platelet Volume 9.4 fl (6-9.5); Monocyte (Absolute #) 0.97 (0.0-1.3); Monocytes % 5.8 % (0.0-12.0); Platelet Count 400 K/mm3 (150-450); Red Blood Count 4.31 M/mm3 (4.1-5.4); Red Cell Distribution Width 13.3 % (11.5-14.0); White Blood Count 16.7 K/mm3 (4.0-10.5)
[2017-06-23 22:14] LABS: Appearance CLEAR (CLEAR); Bilirubin NEGATIVE (NEGATIVE); Blood NEGATIVE Ery/ul (0-5); Glucose NEGATIVE (NEGATIVE); Ketones NEGATIVE (NEGATIVE); Leukocyte Esterase NEGATIVE (NEGATIVE); Nitrite NEGATIVE (NEGATIVE); Protein,Urine Dip NEGATIVE (Negative); Urobilinogen NORMAL mg/dL (0-1)
[2017-06-23 22:24] LABS: ALBUMIN 3.7 g/dL (3.5-5.0); ALKALINE PHOSPHATASE 94 U/L (38-126); AMYLASE 50 U/L (30-110); BLOOD UREA NITROGEN 10 mg/dL (7-17); CHLORIDE 104 mmol/L (98-107); Calcium 9.1 mg/dL (8.4-10.2); Carbon Dioxide 22 mmol/L (22-30); Creatinine 1 0.66 mg/dL (0.52-1.04); Glucose 126 mg/dL (74-106); LIPASE 42 U/L (23-300); Potassium 3.9 mmol/L (3.5-5.1); SGOT/AST 21 U/L (14-36); SODIUM 138 mmol/L (137-145)
[2017-06-23 22:32] LABS: SGPT/ALT 18 U/L (0-35)
[2017-06-23 22:34] LABS: Slide Review 1 YES
[2017-06-23] MEDS ORDERED: MORPHINE SULFATE 4 MG INJ ONE (22:55)
[2017-06-23] MEDS: MORPHINE SULFATE 4 MG INJ IV ONE (22:56)
[2017-06-24] MEDS ORDERED: Zofran 4 MG/2 ML VIAL ONE (00:19)
[2017-06-24] MEDS: Zofran 4 MG/2 ML VIAL IV ONE (00:21)
[2017-06-24] MEDS ORDERED: DILAUDID 2 MG INJECTION ONE (00:44)
[2017-06-24] MEDS: Hydromorphone 1 mg/ml Ampule IV ONE (00:47)
[2017-06-24 01:12] VITALS: BP 126/62
--- NOTE | 2017-06-24 08:48 | XRAY ---
Indication: Lower abdominal pain. Multiple contiguous axial images obtained through the abdomen and pelvis using 80 cc Isovue 370 contrast only. Comparison: August 14, 2015. Lung bases demonstrates a few calcified granulomas. No infiltrate or effusion. Heart is not enlarged. Noncontrasted stomach and bowel loops appear nonobstructed. Normal appendix. New 3.3 cm right ovary cyst. No free fluid/air. Again previous cholecystectomy and calcified splenic granulomas. Remaining liver, pancreas, spleen, adrenal glands, kidneys, ureters, uterus, and bladder appear unremarkable. There remains minimal aortoiliac calcifications. No AAA or pathologic retroperitoneal lymphadenopathy. Osseous structures intact again with lumbosacral junction degenerative disc disease. Interval T8 kyphoplasty. Impression: 1. New 3.3 cm right ovary cyst. 2. Again evidence for old granulomatous disease. 3. No acute intra-abdominal/pelvic abnormalities. Comment: Preliminary interpretation was made by [facility]. No discrepancy. CT DI 23.68
== END 2017-06-24 01:12 | disposition home or self-care (01) ==
LOC: ED 21:30
DX: N83.201 Unspecified ovarian cyst, right side (principal); R10.33 Periumbilical pain; R11.0 Nausea; Z79.899 Other long term (current) drug therapy
CPT/HCPCS: 36000; 36415; 74177; 80053; 81002; 82150; 83690; 84703; 85025; 96374; 96375; 96376; 99284; J1170; J1885; J2270; J2405

== ENCOUNTER 2017-11-08 15:47 | Emergency (ER) | payer MEDICARE ==
--- NOTE | 2017-11-08 16:22 | ERPHSYRPT ---
- History of Present Illness Time Seen by Provider: 11/08/17 16:10 Source: patient Exam Limitations: no limitations Patient Subjective Stated Complaint: Pt states "I am having an extremely hard time with my emotions. I fly into a rage for absolutely nothing. They have been lowering my medications and I do not know what to do anymore." Triage Nursing Assessment: Pt alert and oriented X 3, skin pwd. Pt ambulates with an upright steady gait, able to speakin clear full sentences. Pt extremely anxious. PT nervous, speaking rapidly, pt crying at one instance and yelling another. Physician History: 47-year-old white female with history of anxiety depression panic disorder and borderline personality fibromyalgia chronic pain, arrives with complaints of anger issues States that she's been angry most of the time since June she states that she's been flying into a rage for about a month. She states she wants to harm herself most of the time. She states that she wants to harm her son (28 years old). patient states she tore her son's room up today, She states she has chronic generalized pain Patient states that she is on Xanax and is been cut down to 1 mg 4 times a day. She had her Seroquel dosage reduced. Patient denies illicit drug or alcohol use. She does smoke cigarettes. Patient apparently tried to cut herself with a butter knife she has some superficial abrasions to her dorsal left forearm Timing/Duration: other (symptoms for over a month) Severity: moderate Modifying Factors: Improves With: nothing Associated Symptoms: other (chronic pain and anxiety), No nausea, No vomiting, No abdominal pain, No shortness of breath, No heartburn, No diaphoresis, No chills, No chest pain, No fever, No headaches, No loss of appetite, No malaise, No rash, No syncope, No seizure, No weakness Allergies/Adverse Reactions: milnacipran HCl [From Savella] Allergy (Severe, Verified 06/23/17 21:47) Tightness of Throat pregabalin [From Lyrica] Allergy (Severe, Verified 06/23/17 21:47) Tightness of Throat Sulfa (Sulfonamide Antibiotics) [Sulfa(Sulfonamide Antibiotics)] Allergy ( Intermediate, Verified 06/23/17 21:47) Hives gabapentin [From Neurontin] Allergy (Mild, Verified 06/23/17 21:47) Swelling topiramate [From Topamax] Allergy (Mild, Verified 06/23/17 21:47) Swelling penicillin G [From Bicillin C-R] Allergy (Verified 11/08/17 16:05) penicillin G procaine [From Bicillin C-R] Allergy (Verified 11/08/17 16:05) Home Medications: Alprazolam 1 mg [Xanax 1 mg] 2 mg PO QIDPRN PRN 08/18/13 [History] Promethazine HCl 25 mg [Phenergan 25 mg] 25 mg PO Q6HPRN 08/18/13 [History ] Tizanidine HCl [Zanaflex] 6 mg PO Q4HPRN PRN 03/13/14 [History] Albuterol Sulfate [Proair Hfa] 2 puff IH UD 06/07/14 [History] Ranitidine HCl [Zantac] 300 mg PO DAILY 06/07/14 [History] Escitalopram Oxalate 10 mg [Lexapro 10 MG] 20 mg PO DAILY 04/20/16 [History] Loperamide HCl [Imodium A-D] 2 mg PO DAILY 04/20/16 [History] Ropinirole HCl 0.5 mg [Requip 0.5 MG] 0.25 mg PO DAILY 04/20/16 [History] Hydroxyzine HCl 25 mg [Atarax 25 mg] 25 mg PO DAILY 06/23/17 [History] Quetiapine Fumarate 50 mg PO DAILY 11/08/17 [History] Hx Tetanus, Diphtheria Vaccination/Date Given: Yes Hx Influenza Vaccination/Date Given: No Hx Pneumococcal Vaccination/Date Given: No Immunizations Up to Date: Yes - Review of Systems Constitutional: No Fever, No Chills Eyes: No Symptoms Ears, Nose, & Throat: No Symptoms Respiratory: No Cough, No Dyspnea Cardiac: No Chest Pain, No Edema, No Syncope Abdominal/Gastrointestinal: No Abdominal Pain, No Nausea, No Vomiting, No Diarrhea Genitourinary Symptoms: No Dysuria Musculoskeletal: Myalgias Skin: No Rash Neurological: No Dizziness, No Focal Weakness, No Sensory Changes Psychological: Anxiety, Suicidal Ideations, Emotional Lability, Other (patient states she wants to harm her son) Endocrine: No Symptoms All Other Systems: Reviewed and Negative - Past Medical History Pertinent Past Medical History: Yes Neurological History: Migraines ENT History: No Pertinent History Cardiac History: Hypertension Respiratory History: Asthma, Sleep Apnea Endocrine Medical History: No Pertinent History Musculoskeletal History: Arthritis, Degenerative Disk Disease, Fibromyalgia, Fractures, Rheumatoid Arthritis GI Medical History: Colitis, GERD, Gallbladder Disease, Hernia, Irritable Bowel , Other History: No Pertinent History Psycho-Social History: Anxiety, Depression, Panic Disorder, Other Female Reproductive Disorders: Fibroids Other Medical History: inflammation in stomach lining,- fibrous breastsBORDERLINE PERSONALITYasthma/allergy inducedovarian cystsbulging disc back - Past Surgical History Past Surgical History: Yes Neuro Surgical History: No Pertinent History Cardiac: No Pertinent History Respiratory: No Pertinent History Gastrointestinal: Cholecystectomy Genitourinary: No Pertinent History Musculoskeletal: No Pertinent History Female Surgical History: Section, Tubal Ligation Other Surgical History: tonsils 1992. vertiplasty t-8 - Social History Smoking Status: Current every day smoker How long have you smoked: 25 years Exposure to second hand smoke: Yes Alcohol Use: None Drug Use: none Patient Lives Alone: No Significant Family History: hypertension - Female History Hx Last Menstrual Period: unknown Hx Now: (bleed all the time) - Nursing Vital Signs Nursing Vital Signs: Initial Vital Signs Temperature 98.9 F 11/08/17 15:53 Pulse Rate 114 H 11/08/17 15:53 Respiratory Rate 22 11/08/17 15:53 Blood Pressure 133/110 11/08/17 15:53 O2 Sat by Pulse Oximetry 97 11/08/17 15:53 Pain Scale Pain Intensity 8 - Physical Exam General Appearance: moderate distress, alert Eye Exam: PERRL/EOMI, eyes nml inspection Ears, Nose, Throat Exam: normal ENT inspection, TMs normal, pharynx normal, moist mucous membranes Neck Exam: normal inspection, non-tender, supple, full range of motion Respiratory Exam: normal breath sounds, lungs clear, No respiratory distress Cardiovascular Exam: normal heart sounds, normal peripheral pulses, tachycardia Gastrointestinal/Abdomen Exam: soft, normal bowel sounds, No tenderness, No mass Back Exam: normal inspection, normal range of motion, No CVA tenderness, No vertebral tenderness Extremity Exam: normal inspection, normal range of motion, pelvis stable Neurologic Exam: alert, oriented x 3, cooperative, shearer operator II-XII nml as tested, normal mood/affect, nml cerebellar function, nml station & gait, sensation nml, No motor deficits Skin Exam: normal color, warm, dry, No rash Lymphatic Exam: No adenopathy SpO2 Interpretation: normal (97%) SpO2: 97 Oxygen Delivery: Room Air - Course Nursing assessment & vital signs reviewed: Yes EKG Interpreted by Me: RATE (95 bpm), Sinus Rhythm, Left [place] Deviation, Other ( EKG: Sinus rhythm, 95 bpm, left axis deviation, no acute ST or T wave changes) Ordered Tests: Active Orders 24 hr Category Date Time Status EKG-ER Only STAT Care 11/08/17 16:11 Active Wound Care STAT Care 11/08/17 18:16 Active Psychiatric Consult STAT Cons 11/08/17 17:28 Active ACETAMINOPHEN Stat Lab 11/08/17 16:30 Completed CBC W DIFF Stat Lab 11/08/17 16:30 Completed CMP Stat Lab 11/08/17 16:30 Completed CULTURE,URINE Stat Lab 11/08/17 16:30 Received ETHYL ALCOHOL Stat Lab 11/08/17 16:30 Completed SALICYLATE Stat Lab 11/08/17 16:30 Completed UA W/RFX UR CULTURE Stat Lab 11/08/17 16:30 Completed Urine Triage Profile Stat Lab 11/08/17 16:30 Completed Medication Summary Discontinued Medications Generic Name Dose Route Start Last Admin Trade Name Freq PRN Reason Stop Dose Admin Bacitracin Zinc 0.9 gm 11/08/17 18:16 11/08/17 18:34 Baciguent Packet TP 11/08/17 18:17 0.9 gm STAT ONE Administration Lorazepam 1 mg 11/08/17 17:57 11/08/17 18:02 Ativan 1 Mg PO 11/08/17 17:58 1 mg STAT ONE Administration Lorazepam Confirm 11/08/17 18:01 Ativan 1 Mg Administered 11/08/17 18:02 Dose 1 mg .ROUTE .STK-MED ONE Lab/Rad Data: Laboratory Result Diagrams 11/08/17 16:30 11/08/17 16:30 Laboratory Results 11/08/17 11/08/17 11/08/17 Range/Units 16:30 16:30 16:30 WBC (4.0-10.5) K/mm3 RBC (4.1-5.4) M/mm3 Hgb (12.0-16.0) gm/dl Hct (35-47) % MCV (78-100) fl MCH (26-32) pg MCHC (32-36) g/dl RDW (11.5-14.0) % Plt Count (150-450) K/mm3 MPV (6-9.5) fl Gran % (36.0-66.0) % Eos # (Auto) (0-0.5) Absolute Lymphs (auto) (1.0-4.6) Absolute Monos (auto) (0.0-1.3) Lymphocytes % (24.0-44.0) % Monocytes % (0.0-12.0) % Eosinophils % (0.00-5.0) % Basophils % (0.0-0.4) % Absolute Granulocytes (1.4-6.9) Basophils # (0-0.4) Sodium 137 (137-145) mmol/L Potassium 3.8 (3.5-5.1) mmol/L Chloride 104 (98-107) mmol/L Carbon Dioxide 24 (22-30) mmol/L Anion Gap 13.4 (5-15) MEQ/L BUN 8 (7-17) mg/dL Creatinine 0.73 (0.52-1.04) mg/dL Estimated GFR > 60.0 ML/MIN Glucose 158 H (74-106) mg/dL Calcium 9.0 (8.4-10.2) mg/dL Total Bilirubin 0.20 (0.2-1.3) mg/dL AST 25 (14-36) U/L ALT 21 (0-35) U/L Alkaline Phosphatase 98 (38-126) U/L Serum Total Protein 7.4 (6.3-8.2) g/dL Albumin 4.1 (3.5-5.0) g/dL Urine Color STRAW (YELLOW) Urine Appearance CLEAR (CLEAR) Urine pH 5.0 (5-6) Ur Specific [place] 1.006 (1.005-1.025) Urine Protein NEGATIVE (Negative) Urine Ketones NEGATIVE (NEGATIVE) Urine Blood SMALL (0-5) [place]/ul Urine Nitrite NEGATIVE (NEGATIVE) Urine Bilirubin NEGATIVE (NEGATIVE) Urine Urobilinogen NEGATIVE (0-1) mg/dL Ur Leukocyte Esterase NEGATIVE (NEGATIVE) Urine WBC (Auto) 0-2 (0-5) /HPF Urine RBC (Auto) 0-2 (0-2) /HPF U Epithel Cells (Auto) RARE (FEW) /HPF Urine Bacteria (Auto) RARE (NEGATIVE) /HPF Urine Mucus (Auto) SLIGHT (NEGATIVE) /HPF Urine Culture Reflexed YES (NO) Urine Glucose NEGATIVE (NEGATIVE) mg/dL Salicylates < 1.0 L (2-20) mg/dL Urine Opiates Level NEGATIVE (NEGATIVE) Ur Methadone NEGATIVE (NEGATIVE) Acetaminophen < 10 L (10-30) ug/ml Urine Barbiturates NEGATIVE (NEGATIVE) Ur Phencyclidine (PCP) NEGATIVE (NEGATIVE) Urine Amphetamine NEGATIVE (NEGATIVE) U Benzodiazepine Level NEGATIVE (NEGATIVE) Urine Cocaine NEGATIVE (NEGATIVE) Urine Marijuana (THC) NEGATIVE (NEGATIVE) Ethyl Alcohol < 10 (0-10) mg/dL 11/08/17 Range/Units 16:30 WBC 18.4 H (4.0-10.5) K/mm3 RBC 4.70 (4.1-5.4) M/mm3 Hgb 14.2 (12.0-16.0) gm/dl Hct 42.9 (35-47) % MCV 91.3 (78-100) fl MCH 30.2 (26-32) pg MCHC 33.1 (32-36) g/dl RDW 13.6 (11.5-14.0) % Plt Count 426 (150-450) K/mm3 MPV 9.4 (6-9.5) fl Gran % 67.3 H (36.0-66.0) % Eos # (Auto) 0.25 (0-0.5) Absolute Lymphs (auto) 4.91 H (1.0-4.6) Absolute Monos (auto) 0.79 (0.0-1.3) Lymphocytes % 26.7 (24.0-44.0) % Monocytes % 4.3 (0.0-12.0) % Eosinophils % 1.4 (0.00-5.0) % Basophils % 0.3 (0.0-0.4) % Absolute Granulocytes 12.38 H (1.4-6.9) Basophils # 0.06 (0-0.4) Sodium (137-145) mmol/L Potassium (3.5-5.1) mmol/L Chloride (98-107) mmol/L Carbon Dioxide (22-30) mmol/L Anion Gap (5-15) MEQ/L BUN (7-17) mg/dL Creatinine (0.52-1.04) mg/dL Estimated GFR ML/MIN Glucose (74-106) mg/dL Calcium (8.4-10.2) mg/dL Total Bilirubin (0.2-1.3) mg/dL AST (14-36) U/L ALT (0-35) U/L Alkaline Phosphatase (38-126) U/L Serum Total Protein (6.3-8.2) g/dL Albumin (3.5-5.0) g/dL Urine Color (YELLOW) Urine Appearance (CLEAR) Urine pH (5-6) Ur Specific [place] (1.005-1.025) Urine Protein (Negative) Urine Ketones (NEGATIVE) Urine Blood (0-5) [place]/ul Urine Nitrite (NEGATIVE) Urine Bilirubin (NEGATIVE) Urine Urobilinogen (0-1) mg/dL Ur Leukocyte Esterase (NEGATIVE) Urine WBC (Auto) (0-5) /HPF Urine RBC (Auto) (0-2) /HPF U Epithel Cells (Auto) (FEW) /HPF Urine Bacteria (Auto) (NEGATIVE) /HPF Urine Mucus (Auto) (NEGATIVE) /HPF Urine Culture Reflexed (NO) Urine Glucose (NEGATIVE) mg/dL Salicylates (2-20) mg/dL Urine Opiates Level (NEGATIVE) Ur Methadone (NEGATIVE) Acetaminophen (10-30) ug/ml Urine Barbiturates (NEGATIVE) Ur Phencyclidine (PCP) (NEGATIVE) Urine Amphetamine (NEGATIVE) U Benzodiazepine Level (NEGATIVE) Urine Cocaine (NEGATIVE) Urine Marijuana (THC) (NEGATIVE) Ethyl Alcohol (0-10) mg/dL - Progress Progress: improved Progress Note: 11/08/17 18:18 This is a 37-year-old white female with history of anxiety, depression, panic disorder, borderline personality disorder Who arrives with complaint of having trouble controlling her anger symptoms for several months however this has become markedly worse over the past month. Patient states she's been having suicidal ideation is also thinking about harming her son who is a 28. She attributes a lot of this to changes in her medications which include a decrease in her Xanax as well as Seroquel. Patient states she is not using illicit drugs or alcohol. She does have some superficial lacerations on her dorsal left forearm distally which she inflicted with a butter knife. She also apparently tore up her son's room. Routine screening labs were obtained from this patient urinalysis is normal. CBC does show a white count elevation of 18.4 hemoglobin 14.2 hematocrit 42.9 platelets are 426 chemistry, acetaminophen level, salicylate level, urine drug screen are pending EKG shows sinus rhythm [address] or T wave changes are normal EKG. Patient's blood pressure and pulse were elevated upon arrival these have improved. Patient was given Ativan 1 mg orally, I've been contacted by Gaby Beasley who came and evaluated the patient. She is recommended to have inpatient treatment this can be provided at [facility] Will await patient's laboratory data plan to transfer. . - Departure Time of Disposition: 18:35 Departure Disposition: Transfer ([facility] [address]) Clinical Impression: Suicidal ideation, Anxiety, Emotional lability, superficial laceration left forearm Psychosis Qualifiers: Psychosis type: unspecified psychosis type Qualified Code(s): F29 - Unspecified psychosis not due to a substance or known physiological condition Condition: Fair Critical Care Time: No Referrals: DEVON HULL [Primary Care Provider] -
[2017-11-08 16:41] LABS: BASOPHIL % 0.3 % (0.0-0.4); Basophil (Absolute #) 0.06 (0-0.4); Eosinophil % 1.4 % (0.00-5.0); Eosinophil (Absolute #) 0.25 (0-0.5); Granulocyte Absolute (ANC) 12.38 (1.4-6.9); Granulocytes % 67.3 % (36.0-66.0); Hematocrit 42.9 % (35-47); Hemoglobin 14.2 gm/dl (12.0-16.0); Lymphocyte (Absolute #) 4.91 (1.0-4.6); Lymphocytes % 26.7 % (24.0-44.0); Mean Cell Volume 91.3 fl (78-100); Mean Corpuscular Hemoglobin 30.2 pg (26-32); Mean Corpuscular Hgb Concent. 33.1 g/dl (32-36); Mean Platelet Volume 9.4 fl (6-9.5); Monocyte (Absolute #) 0.79 (0.0-1.3); Monocytes % 4.3 % (0.0-12.0); Platelet Count 426 K/mm3 (150-450); Red Cell Distribution Width 13.6 % (11.5-14.0); White Blood Count 18.4 K/mm3 (4.0-10.5)
[2017-11-08 17:39] LABS: Appearance CLEAR (CLEAR); Bilirubin NEGATIVE (NEGATIVE); Blood SMALL Ery/ul (0-5); Glucose NEGATIVE (NEGATIVE); Ketones NEGATIVE (NEGATIVE); Leukocyte Esterase NEGATIVE (NEGATIVE); Nitrite NEGATIVE (NEGATIVE); Protein,Urine Dip NEGATIVE (Negative); Specific Gravity 1.006 (1.005-1.025); Urobilinogen NEGATIVE mg/dL (0-1)
[2017-11-08] MEDS ORDERED: Ativan 1 MG PO ONE (17:57)
[2017-11-08] MEDS ORDERED: Ativan 1 MG ONE (18:01)
[2017-11-08 18:07] LABS: ALBUMIN 4.1 g/dL (3.5-5.0); ALKALINE PHOSPHATASE 98 U/L (38-126); ANION GAP 13.4 MEQ/L (5-15); BLOOD UREA NITROGEN 8 mg/dL (7-17); CHLORIDE 104 mmol/L (98-107); Carbon Dioxide 24 mmol/L (22-30); Creatinine 1 0.73 mg/dL (0.52-1.04); Glucose 158 mg/dL (74-106); Potassium 3.8 mmol/L (3.5-5.1); SGOT/AST 25 U/L (14-36); SGPT/ALT 21 U/L (0-35); SODIUM 137 mmol/L (137-145); Total Protein 7.4 g/dL (6.3-8.2)
[2017-11-08] MEDS ORDERED: BACIGUENT PACKET TP ONE (18:16)
[2017-11-08 18:25] LABS: ACETAMINOPHEN < 10 ug/ml (10-30); ETHYL ALCOHOL < 10 mg/dL (0-10); SALICYLATE < 1.0 mg/dL (2-20)
[2017-11-08 18:27] LABS: Amphetamine,Urine NEGATIVE (NEGATIVE); Barbiturate,Urine NEGATIVE (NEGATIVE); Benzodiazepine,Urine NEGATIVE (NEGATIVE); Cocaine,Urine NEGATIVE (NEGATIVE); Methadone,Urine NEGATIVE (NEGATIVE); Opiate,Urine NEGATIVE (NEGATIVE); PCP,Urine NEGATIVE (NEGATIVE); THC,Urine NEGATIVE (NEGATIVE)
[2017-11-08] MEDS ORDERED: BACIGUENT PACKET ONE (18:37)
[2017-11-08 19:30] VITALS: BP 125/87; PULSE 102; O2SAT 100
== END 2017-11-08 19:28 ==
LOC: ED 15:47
DX: R45.851 Suicidal ideations (principal); F41.9 Anxiety disorder, unspecified; F29 Unspecified psychosis not due to a substance or known physiological condition; S51.812A Laceration without foreign body of left forearm, initial encounter; S50.812A Abrasion of left forearm, initial encounter; F32.9 Major depressive disorder, single episode, unspecified; F60.3 Borderline personality disorder; Z71.0 Person encountering health services to consult on behalf of another person; I10 Essential (primary) hypertension; G47.30 Sleep apnea, unspecified; M19.90 Unspecified osteoarthritis, unspecified site; M79.7 Fibromyalgia; K21.9 Gastro-esophageal reflux disease without esophagitis; Z79.899 Other long term (current) drug therapy
CPT/HCPCS: 36415; 80053; 80307; 81001; 85025; 87086; 90791; 93005; 99285; G0481; 99284; Q3014; A9270-GY; G0480

== ENCOUNTER 2017-11-17 16:27 | Emergency (ER) | payer MEDICARE ==
[2017-11-17 17:01] VITALS: BP 119/88; PULSE 100; O2SAT 99
[2017-11-17] MEDS ORDERED: Hydromorphone 1 mg/ml Ampule IM ONE (17:22)
[2017-11-17] MEDS ORDERED: Phenergan 25 MG INJ IM ONE (17:24)
--- NOTE | 2017-11-17 17:32 | ERPHSYRPT ---
- History of Present Illness Time Seen by Provider: 11/17/17 16:44 Source: patient Exam Limitations: clinical condition Patient Subjective Stated Complaint: states fell [facility] [place] on Wednesday. pain in tailbone that goes around to her belly. she states she is unable to eat, did eat this AM without problems. Triage Nursing Assessment: alert and unable to sit straight.. states pain in tailbone that radiates to abdomen. [facility]. unable to sit straight. nausea without vomiting Physician History: PATIENT WITH A HISTORY OF CHRONIC LOW BACK PAIN, DEGENERATIVE DISC DISEASE, SCIATICA, DEPRESSION, SLIPPED ONTO FLOOR FELL ONTO TAILBONE 4 DAYS AGO AND HAS PERSISTENT PAIN. DENIES HEAD INJURY, NECK PAIN OR LOSS OF CONSCIOUSNESS. HAS BEEN EVALUATED BY PAIN SPECIALIST 2 YEARS AGO IN [facility]. DENIES NUMBNESS, TINGLING OR WEAKNESS IN EXTREMITIES. Occurred: days ago (4 DAYS AGO) Reason for Fall: slipped Injuries/Pain Location: back, pelvis (TAILBONE) Quality: throbbing Severity of Pain-Max: moderate Severity of Pain-Current: moderate Modifying Factors: Improves With: movement Associated Symptoms (Fall): back pain, other (TAILBONE PAIN) Allergies/Adverse Reactions: milnacipran HCl [From Savella] Allergy (Severe, Verified 11/17/17 17:01) Tightness of Throat pregabalin [From Lyrica] Allergy (Severe, Verified 11/17/17 17:01) Tightness of Throat Sulfa (Sulfonamide Antibiotics) [Sulfa(Sulfonamide Antibiotics)] Allergy ( Intermediate, Verified 11/17/17 17:01) Hives gabapentin [From Neurontin] Allergy (Mild, Verified 11/17/17 17:01) Swelling topiramate [From Topamax] Allergy (Mild, Verified 11/17/17 17:01) Swelling penicillin G [From Bicillin C-R] Allergy (Verified 11/17/17 17:01) penicillin G procaine [From Bicillin C-R] Allergy (Verified 11/17/17 17:01) Home Medications: Alprazolam 1 mg [Xanax 1 mg] 2 mg PO QIDPRN PRN 08/18/13 [History] Promethazine HCl 25 mg [Phenergan 25 mg] 25 mg PO Q6HPRN 08/18/13 [History ] Tizanidine HCl [Zanaflex] 6 mg PO Q4HPRN PRN 03/13/14 [History] Albuterol Sulfate [Proair Hfa] 2 puff IH UD 06/07/14 [History] Ranitidine HCl [Zantac] 300 mg PO DAILY 06/07/14 [History] Escitalopram Oxalate 10 mg [Lexapro 10 MG] 20 mg PO DAILY 04/20/16 [History] Loperamide HCl [Imodium A-D] 2 mg PO DAILY 04/20/16 [History] Ropinirole HCl 0.5 mg [Requip 0.5 MG] 0.25 mg PO DAILY 04/20/16 [History] Hydroxyzine HCl 25 mg [Atarax 25 mg] 25 mg PO DAILY 06/23/17 [History] Quetiapine Fumarate 50 mg PO DAILY 11/08/17 [History] Hx Tetanus, Diphtheria Vaccination/Date Given: Yes Hx Influenza Vaccination/Date Given: No Hx Pneumococcal Vaccination/Date Given: No - Review of Systems Constitutional: No Symptoms, No Fever, No Chills Ears, Nose, & Throat: No Symptoms Respiratory: No Cough, No Dyspnea Cardiac: No Chest Pain, No Edema, No Syncope Abdominal/Gastrointestinal: No Abdominal Pain, No Nausea, No Vomiting, No Diarrhea Musculoskeletal: Back Pain, Joint Pain Neurological: No Symptoms, No Dizziness, No Focal Weakness, No Sensory Changes - Past Medical History Pertinent Past Medical History: Yes Neurological History: Migraines ENT History: No Pertinent History Cardiac History: Hypertension Respiratory History: Asthma, Sleep Apnea Endocrine Medical History: No Pertinent History Musculoskeletal History: Arthritis, Degenerative Disk Disease, Fibromyalgia, Fractures, Rheumatoid Arthritis GI Medical History: Colitis, GERD, Gallbladder Disease, Hernia, Irritable Bowel , Other History: No Pertinent History Psycho-Social History: Anxiety, Depression, Panic Disorder, Other Female Reproductive Disorders: Fibroids Other Medical History: inflammation in stomach lining,- fibrous breastsBORDERLINE PERSONALITYasthma/allergy inducedovarian cystsbulging disc back - Past Surgical History Past Surgical History: Yes Neuro Surgical History: No Pertinent History Cardiac: No Pertinent History Respiratory: No Pertinent History Gastrointestinal: Cholecystectomy Genitourinary: No Pertinent History Musculoskeletal: No Pertinent History Female Surgical History: Section, Tubal Ligation Other Surgical History: tonsils 1992. vertiplasty t-8 - Social History Smoking Status: Current every day smoker How long have you smoked: 25 years Exposure to second hand smoke: No Alcohol Use: None Drug Use: none Patient Lives Alone: No Significant Family History: hypertension - Female History Hx Now: No - Nursing Vital Signs Nursing Vital Signs: Initial Vital Signs Pulse Rate 100 H 11/17/17 16:28 Respiratory Rate 20 11/17/17 16:28 Blood Pressure 119/88 11/17/17 16:28 O2 Sat by Pulse Oximetry 99 11/17/17 16:28 Pain Scale Pain Intensity [Posterior Back 9 ] Pain Intensity 8 - Pella Coma Score Best Eye Response (Pella): (4) open spontaneously Best Verbal Response (Alicia): (5) oriented Best Motor Response (Alicia): (6) obeys commands Pella Total: 15 - Physical Exam General Appearance: mild distress Head Injury: no evidence of injury Eye Exam: PERRL/EOMI ENT Exam: airway nml Respiratory/Chest Exam: normal breath sounds, No chest tenderness, No respiratory distress Cardiovascular Exam: normal heart sounds, regular rate/rhythm Back Exam: normal inspection, decreased range of motion, point tenderness (L-1 TO S1, TENDERNESS OVER SACRUM, AND COCYX, NO CREPITUS OR ECCHYMOSIS) Peripheral Pulses: carotid (R): 2+, carotid (L): 2+, femoral (R): 2+, femoral (L ): 2+, dorsalis-pedis (R): 2+ Neurologic Exam: alert, oriented x 3 SpO2 Interpretation: normal SpO2: 99 Oxygen Delivery: Room Air - CT Exams Lumbar Spine CT Interpretation: Discussed w/radiologist, No Fracture, No Subluxation (L5-S1 DDD) Pelvis CT Interpretation: Discussed w/radiologist, No Fracture Ordered Tests: Active Orders 24 hr Category Date Time Status LUMBAR SPINE W/O [CT] Stat Exams 11/17/17 17:23 Taken PELVIS WITHOUT CONTRAST [CT] Stat Exams 11/17/17 17:24 Taken Medication Summary Discontinued Medications Generic Name Dose Route Start Last Admin Trade Name Freq PRN Reason Stop Dose Admin Hydromorphone HCl 1 mg 11/17/17 17:22 11/17/17 17:47 Hydromorphone 1 Mg/Ml Ampule IM 11/17/17 17:23 1 mg STAT ONE Administration Hydromorphone HCl Confirm 11/17/17 17:45 Hydromorphone 1 Mg/Ml Ampule Administered 11/17/17 17:46 Dose 1 mg .ROUTE .STK-MED ONE Promethazine HCl 25 mg 11/17/17 17:24 11/17/17 17:47 Phenergan 25 Mg Inj IM 11/17/17 17:25 25 mg STAT ONE Administration Promethazine HCl Confirm 11/17/17 17:44 Phenergan 25 Mg Inj Administered 11/17/17 17:45 Dose 25 mg .ROUTE .STK-MED ONE - Progress Progress: improved, pain not gone completely Progress Note: 11/17/17 17:43 ADMINISTERED DILAUDID 1MG/PHENERGAN 25MG IM Counseled pt/family regarding: rad results - Departure Time of Disposition: 18:35 Departure Disposition: Home Clinical Impression: ACUTE LUMBAR STRAIN, COCCYX CONTUSION Condition: Stable Critical Care Time: No Referrals: DEVON HULL [Primary Care Provider] - Additional Instructions: PERCOGESIC 1-2 TABLETS EVERY 4-6 HOURS NEEDED FOR PAIN. CONTINUE ZANAFLEX FOR MUSCLE SPASM. FOLLOWUP WITH YOUR PRIMARY CARE PROVIDER FOR PAIN MANAGEMENT , PHYSICAL THERAPY AND REFERRAL TO YOUR PREVIOUS PAIN SPECIALIST. Prescriptions: Acetaminophen/Diphenhydramine [Percogesic 325-12.5 mg Tablet] 2 tablet PO Q4- 6HPRN PRN #15 tablet PRN Reason: Pain
[2017-11-17] MEDS ORDERED: Phenergan 25 MG INJ ONE (17:44)
[2017-11-17] MEDS ORDERED: Hydromorphone 1 mg/ml Ampule ONE (17:45)
--- NOTE | 2017-11-18 08:45 | XRAY ---
Indication: Low back pain following fall. Multiple contiguous axial images obtained through the lumbar spine. Sagittal and coronal reformatted images obtained. Comparison: CT abdomen/pelvis June 23, 2017 Axial images negative for acute fracture, suspicious bony lesions, or spinal canal stenosis. Stable L5-S1 mild broad-based disc bulge with vacuum disc phenomena. Facets are symmetric with mild L5-S1 degenerative facet arthropathy. Sagittal and coronal reformatted images demonstrates normal lumbar alignment with minimal L5-S1 disc space narrowing. Remaining body heights and disc spaces maintained. No acute compression fracture or subluxation. Visualized noncontrasted soft tissues again demonstrates minimal aortoiliac calcifications. Impression: 1. Stable L5-S1 degenerative changes. 2. Remaining CT lumbar spine is negative. CT DI 76.92
--- NOTE | 2017-11-18 08:47 | XRAY ---
Indication: Low back pain following fall. Multiple contiguous axial images obtained through the pelvis with special attention to the osseous structures.. Sagittal and coronal reformatted images obtained. Comparison: CT abdomen/pelvis June 23, 2017 Axial images negative for acute fracture, suspicious bony lesions, or spinal canal stenosis. Stable L5-S1 mild broad-based disc bulge with vacuum disc phenomena and mild bilateral degenerative facet arthropathy. Also stable tiny right femur head bone island. Sacroiliac joints are bilaterally symmetric. Visualized noncontrasted soft tissues again demonstrates minimal aortoiliac calcifications and a few pelvic phleboliths. Impression: 1. Stable L5-S1 degenerative changes. 2. Remaining CT pelvis is negative. CT DI 57.91
== END 2017-11-17 18:51 | disposition home or self-care (01) ==
LOC: ED 16:27
DX: S39.012A Strain of muscle, fascia and tendon of lower back, initial encounter (principal); S30.0XXA Contusion of lower back and pelvis, initial encounter; W01.0XXA Fall on same level from slipping, tripping and stumbling without subsequent striking against object, initial encounter; Y92.239 Unspecified place in hospital as the place of occurrence of the external cause; Z79.899 Other long term (current) drug therapy
CPT/HCPCS: 72131; 72192; 96372; 99284; J1170; J2550